=== PATIENT | female | born 1970 | race Caucasian/White ===

== ENCOUNTER 2016-12-05 05:35 | Emergency (ER) | payer BC ==
--- NOTE | 2016-12-05 05:38 | PDOC ---
History of Present Illness - General Chief Complaint: Pain, Acute Stated Complaint: ULCER ON LEFT RING FINGER Time Seen by Provider: 12/05/16 05:38 - History of Present Illness Initial Comments: This 46-year-old woman with a history of scleroderma and Raynaud's syndrome, with a history of necrotic ulcers the tips of both fingers presents with persistent pain in an ulcer at the tip of her left fourth finger. Patient states that this particular ulcer began developing in June 2016. Since then , she has had necrosis and pain in the area. Follow-up appointments in the last few months with hand surgery and pain management appears to have not been effective for her healing or pain. For the last month, she has taken Tylenol for the pain only without significant relief. She has not had any follow-up with wound care physicians. She has never had any secondary bacterial infection in any of her ischemic ulcers. Past History - Past Medical History Allergies/Adverse Reactions: Allergies Allergy/AdvReac Type Severity Reaction Status Date / Time Penicillins Allergy Hives Verified 12/05/16 05:39 ibuprofen [From Motrin] AdvReac Swelling Verified 12/05/16 05:39 metoprolol AdvReac Verified 12/05/16 05:39 oseltamivir AdvReac Verified 12/05/16 05:39 phenytoin AdvReac Rash Verified 12/05/16 05:39 Home Medications: Ambulatory Orders Levothyroxine [Synthroid -] 75 mcg PO DAILY #0 tablet 08/03/13 Pantoprazole Sodium [Protonix] 40 mg PO DAILY 10/14/14 Diltiazem HCl [Diltiazem 24Hr ER] 240 mg PO BID 10/16/14 Azathioprine [Imuran] 50 mg PO TID 12/05/16 Cyanocobalamin 1,000 mcg IM MONTHLY 12/05/16 Duloxetine HCl [Cymbalta] 20 mg PO DAILY 12/05/16 Oxycodone HCl/Acetaminophen [Percocet 5-325 mg Tablet] 1 tab PO Q6H PRN #16 tablet MDD 4 tabs 12/05/16 Anemia: Yes Cardiac Disorders: Yes ("heart murmur", HCM) COPD: Yes (PULMONARY HTN) GI Disorders: Yes ("acid reflux") HTN: Yes Thyroid Disease: Yes - Surgical History Abdominal Surgery: Yes (TUBAL LIGATION) - Psycho/Social/Smoking Cessation Hx Anxiety: Yes Suicidal Ideation: No Smoking History: Former smoker Have you smoked in the past 12 months: No Number of Cigarettes Smoked Daily: 26 Hx Alcohol Use: Yes ("RARE") Drug/Substance Use Hx: No Substance Use Type: None *Physical Exam - Physical Exam Comments: GENERAL: Awake, alert, and fully oriented, in moderate distress secondary to left fourth finger pain HEAD: No signs of trauma EYES: PERRLA, EOMI, sclera anicteric, conjunctiva clear ENT: Auricles normal inspection, hearing grossly normal, nares patent, oropharynx clear without exudates. Moist mucosa NECK: Normal ROM, supple, no lymphadenopathy, JVD, or masses LUNGS: Breath sounds clear and equal. No wheezes, and no crackles HEART: Regular rate and rhythm, normal S1 and S2, no murmurs, rubs or gallops ABDOMEN: Soft, nontender, normoactive bowel sounds. No guarding, no rebound. No masses EXTREMITIES: Left fourth finger1 cm by 1 cm tender, necrotic ulcer palmar aspect of the distal phalanx; surrounding 2 cm erythematous/edematous area No fluctuance or purulent discharge NEUROLOGICAL: Cranial nerves II through XII grossly intact. Normal speech, normal gait SKIN: Warm, Dry, normal turgor, no rashes or lesions noted. Imaging director of agronomy interpretation of the left fourth finger x-ray: Osteopenia without evidence of bone necrosis Medical Decision Making - Medical Decision Making Because of the patient's severe pain secondary to her ischemic finger ulcer, patient will have 1 mg of Dilaudid IM. Patient is intolerant of nonsteroidal anti-inflammatory medications. She will be given a prescription for Percocet 5/325 (#16) to be taken up to 4 times a day as needed for severe pain. Patient will be referred to [facility] wound care center. In retrospect, the patient remembered that her PMD, Dr. Orona, had suggested that the wound care center at [facility] evaluate her.. She should also call Dr. Orona within the next 48 hours to arrange for follow-up with him. She should return to the emergency room if she has worsening pain or notices discharge/swelling or redness in the proximal digit/hand *DC/Admit/Observation/Transfer Diagnosis at time of Disposition: Ischemic ulcer of finger Qualifiers: Non-pressure ulcer stage: unspecified non-pressure ulcer stage Qualified Code(s ): L98.499 - Non-pressure chronic ulcer of skin of other sites with unspecified severity - Discharge Dispostion Disposition: HOME Condition at time of disposition: Stable - Prescriptions Prescriptions: Oxycodone HCl/Acetaminophen [Percocet 5-325 mg Tablet] 1 tab PO Q6H PRN #16 tablet MDD 4 tabs PRN Reason: Severe Pain - Referrals Referrals: Tom Orona MD [Primary Care Provider] - Call tomorrow - Patient Instructions Additional Instructions: Tylenol as needed for mild pain Percocet 5/325 up to 4 times a day for severe pain Call Dr. Orona on December 06 to arrange follow-up Call wound care center at [facility]: [phone] as discussed Return to ER as needed
[2016-12-05 05:52] VITALS: PULSE 70; TEMP 97.4
[2016-12-05] MEDS ORDERED: HYDROmorphone HCL CARPU-JECT 1 MG/1 ML DISP.SYRIN IM ONE (06:08)
[2016-12-05] MEDS ORDERED: HYDROmorphone HCL CARPU-JECT 2 MG/1 ML DISP.SYRIN ONE (06:10)
[2016-12-05 06:15] VITALS: BP 154/93
== END 2016-12-05 06:21 | disposition home or self-care (01) ==
LOC: FER 05:35
PROC: 3E023NZ Introduction of Analgesics, Hypnotics, Sedatives into Muscle, Percutaneous Approach (ICD-10-PCS; principal; 2016-12-05)
DX: L98.499 Non-pressure chronic ulcer of skin of other sites with unspecified severity (principal); M34.9 Systemic sclerosis, unspecified; I73.00 Raynaud's syndrome without gangrene; I27.2 Other secondary pulmonary hypertension; Z87.891 Personal history of nicotine dependence; E07.9 Disorder of thyroid, unspecified; D64.9 Anemia, unspecified; R01.1 Cardiac murmur, unspecified; K21.9 Gastro-esophageal reflux disease without esophagitis; I10 Essential (primary) hypertension
CPT/HCPCS: 73140-TC-LT; 99281-25

== ENCOUNTER 2018-09-20 12:27 | Emergency (ER) | payer BC ==
[2018-09-20 12:57] VITALS: BP 151/82; PULSE 63; TEMP 97.7; BMI 28.3
--- NOTE | 2018-09-20 13:01 | PDOC ---
History of Present Illness - General Chief Complaint: Pain Stated Complaint: ARM AND LEG STIFFNESS AND PAIN Time Seen by Provider: 09/20/18 12:48 History Source: Patient Exam Limitations: No Limitations - History of Present Illness Initial Comments: 09/20/18 13:02 Ms Valdez is a 48 yo F h/o HTN, Hypothyroidism, systemic scleroderma severe ( previously requiring chemotherapy), now on Imuran (no recent dose changes). Pt states that 10 days ago, she began to feel that her muscles and joints were inflammed. She contacted Dr Rodgers (her floor nurse) who started her on a Medrol dose pack. Pt completed this PMH: HTN, GERD, Scleroderma PSH: Meds: ALL: PCN, Ibuprofen, Metoprolol, Oseltamivir, Phenytoin Social: ROS: GENERAL/CONSTITUTIONAL: No: fever, chills, weakness, loss of appetite. HEAD, EYES, EARS, NOSE AND THROAT: No: change in vision, ear pain, discharge, sore throat, throat swelling. CARDIOVASCULAR: No: chest pain, lightheadedness, palpitations, syncope RESPIRATORY: No: cough, shortness of breath, wheezing, hemoptysis, stridor. GASTROINTESTINAL: No: nausea, vomiting, abdominal cramping, diarrhea, rectal bleeding, constipation. GENITOURINARY: No: dysuria, hematuria, frequency, urgency, flank pain. MUSCULOSKELETAL: No: back pain, neck pain, joint pain, muscle swelling or pain SKIN AND BREASTS: No: lesions, pallor, rash or easy bruising. NEUROLOGIC: No: headache, vertigo, paresthesias, weakness ENDOCRINE: No: unexplained weight gain or loss HEMATOLOGIC/LYMPHATIC: No: anemia, easy bleeding, swelling nodes My Normal Exam GENERAL: The patient is in no acute distress. HEAD: Normal with no signs of trauma. EYES: PERRLA, EOMI, sclera anicteric, conjunctiva clear. ENT: Ears normal, nares patent, oropharynx clear without exudates. Moist mucous membranes. NECK: Normal range of motion, supple without lymphadenopathy, JVD, or masses. LUNGS: Breath sounds equal, clear to auscultation bilaterally. No wheezes, and no crackles. HEART:Regular rate and rhythm, normal S1 and S2 without murmur, rub or gallop. ABDOMEN: Soft, nontender, normoactive bowel sounds. No guarding, no rebound. EXTREMITIES: Normal range of motion, no edema. No clubbing or cyanosis. No erythema, or tenderness. NEUROLOGICAL: Cranial nerves II through XII grossly intact. Normal speech. No focal neurological deficits. MUSCULOSKELETAL: Back non-tender to palpation, no CVA tenderness SKIN: Warm, Dry, normal turgor, no rashes or lesions noted. 09/20/18 13:54 09/20/18 15:09 Past History - Past Medical History Allergies/Adverse Reactions: Allergies Allergy/AdvReac Type Severity Reaction Status Date / Time Penicillins Allergy Hives Verified 09/20/18 12:28 ibuprofen [From Motrin] AdvReac Swelling Verified 09/20/18 12:29 metoprolol AdvReac Verified 09/20/18 12:29 oseltamivir AdvReac Verified 09/20/18 12:30 phenytoin AdvReac Rash Verified 09/20/18 12:31 Home Medications: Ambulatory Orders Levothyroxine [Synthroid -] 75 mcg PO DAILY #0 tablet 08/03/13 Pantoprazole Sodium [Protonix] 40 mg PO DAILY 10/14/14 Diltiazem HCl [Diltiazem 24Hr ER] 240 mg PO BID 10/16/14 Azathioprine [Imuran] 50 mg PO TID 12/05/16 Oxycodone HCl/Acetaminophen [Percocet 5-325 mg Tablet -] 1 tab PO Q8H PRN #10 tablet MDD 3 09/20/18 Anemia: Yes Cardiac Disorders: Yes ("heart murmur", HCM MVP PERICARDITIS) COPD: Yes (PULMONARY HTN) GI Disorders: Yes ("acid reflux") HTN: Yes Thyroid Disease: Yes Other medical history: SCLERODERMA,RAYNAURDS, LUNG DISEASE - Surgical History Abdominal Surgery: Yes (TUBAL LIGATION) - Suicide/Smoking/Psychosocial Hx Smoking History: Never smoked Have you smoked in the past 12 months: No Number of Cigarettes Smoked Daily: 26 Information on smoking cessation initiated: No Hx Alcohol Use: No Drug/Substance Use Hx: No Substance Use Type: None *Physical Exam - Vital Signs Last Vital Signs Temp Pulse Resp BP Pulse Ox 97.7 F 63 16 151/82 100 09/20/18 12:28 09/20/18 12:28 09/20/18 12:28 09/20/18 12:28 09/20/18 12:28 Moderate Sedation - Procedure Monitoring Vital Signs: Procedure Monitoring Vital Signs Temperature 97.7 F 09/20/18 12:28 Pulse Rate 63 09/20/18 12:28 Respiratory Rate 16 09/20/18 12:28 Blood Pressure 151/82 09/20/18 12:28 O2 Sat by Pulse Oximetry (%) 100 09/20/18 12:28 ED Treatment Course - LABORATORY CBC & Chemistry Diagram: 09/20/18 14:22 09/20/18 14:22 Medical Decision Making - Medical Decision Making 09/20/18 15:49 Laboratory Tests 09/20/18 09/20/18 14:22 14:22 WBC 6.5 Hgb 14.0 Hct 43.6 Plt Count 273 Sodium 132 L Potassium 3.6 Chloride 101 Carbon Dioxide 24 BUN 12 Creatinine 0.4 L Random Glucose 93 Total Bilirubin 1.3 H AST 29 ALT 17 Case reviewed with patient's Form Tamping Machine Operator who states that the patient has a mixed connective tissue disorder - scleroderma, myositis she recommended that she NOT be started on steroids again Rather she recommend aggressive Rhab Pt was up and to the bathroom with improved symptoms after Tylenol 1000mg IV will discharge to home Will ask pt to follow up with PMD and Form Tamping Machine Operator Will give a 3 day course of percocet for break through pain *DC/Admit/Observation/Transfer Diagnosis at time of Disposition: Muscle stiffness - Discharge Dispostion Disposition: HOME Condition at time of disposition: Stable Decision to Admit order: No - Referrals Referrals: Tom Orona MD [Staff Physician] - - Patient Instructions Printed Discharge Instructions: DI for Muscle Weakness Additional Instructions: Ms Valdez Thank you for coming in to the ER today Please be sure to follow up with Dr Rodgers and Dr Orona It will be important to see how you do with pain medications You may need to go back to physical therapy Please return to the ER for Fevers, chills, any other concerns or complaints - Post Discharge Activity
[2018-09-20 14:29] LABS: MEAN PLT VOLUME 8.1 fl (7.5-11.1); WHITE BLOOD COUNT 6.5 K/mm3 (4.0-10.8)
[2018-09-20 14:32] LABS: HEMATOCRIT 43.6 % (32.4-45.2); MCH 27.9 pg (25.7-33.7); MCHC 32.2 g/dl (32.0-36.0); MEAN CELL VOLUME 86.6 fl (80-96); PLATELET COUNT 273 K/MM3 (134-434); RBC 5.03 M/mm3 (3.60-5.2); RDW 16.6 % (11.6-15.6)
[2018-09-20] MEDS ORDERED: ACETAMINOPHEN 1000 MG/100 ML VIAL (NON FORMULARY) IVPB ONE (14:47)
[2018-09-20 14:51] LABS: ALBUMIN 3.4 g/dl (3.4-5.0); ALK PHOS 82 U/L (45-117); ANION GAP 7 MMOL/L (8-16); BILIRUBIN,TOTAL 1.3 mg/dl (0.2-1); BLOOD UREA NITROGEN 12 mg/dl (7-18); CALCIUM 8.4 mg/dl (8.5-10); CHLORIDE 101 mmol/L (98-107); CO2 24 mmol/L (21-32); CREATININE 0.4 mg/dl (0.55-1.3); GLUCOSE,RANDOM 93 mg/dl (74-106); POTASSIUM 3.6 mmol/L (3.5-5.1); SGOT/AST 29 U/L (15-37); SGPT/ALT 17 U/L (13-61); SODIUM 132 mmol/L (136-145); TOT PROT 7.8 g/dl (6.4-8.2)
[2018-09-20] MEDS ORDERED: ACETAMINOPHEN INJECTION 100 ML IVPB ONE (14:52)
[2018-09-20 15:09] LABS: PLATELET ESTIMATE ADEQUATE
[2018-09-20 15:53] LABS: ERYTHROCYTE SEDIMENTATION RATE 23 mm/hr (0-30)
== END 2018-09-20 16:41 | disposition home or self-care (01) ==
LOC: FER 12:27
PROC: 3E033NZ Introduction of Analgesics, Hypnotics, Sedatives into Peripheral Vein, Percutaneous Approach (ICD-10-PCS; principal; 2018-09-20)
DX: M62.89 Other specified disorders of muscle (principal); I10 Essential (primary) hypertension; E03.9 Hypothyroidism, unspecified; M34.9 Systemic sclerosis, unspecified; K21.9 Gastro-esophageal reflux disease without esophagitis; R01.1 Cardiac murmur, unspecified
CPT/HCPCS: 36415; 80053; 85025; 85651; 86140; 99282-25; J0131

== ENCOUNTER 2019-04-02 17:50 | Inpatient (IN) | payer BC ==
--- NOTE | 2019-04-02 17:54 | PDOC ---
History of Present Illness - General Chief Complaint: Pain Stated Complaint: ABD PAIN Time Seen by Provider: 04/02/19 17:53 History Source: Patient Exam Limitations: No Limitations - History of Present Illness Initial Comments: 48 yo F pmh scleroderma, copd, raynauds chf, pulm htn sent in by PCP for 3 days of worsening constant sharp LUQ pain with n/v/po-intolerance. Was hospitalized in February for PNA and March (dc the ) for cardiac workup. Last BM - hard pellets yesterday. Denies f/c, diarrhea, bloody stool, chest pain. States her breathing is at baseline and has chronic unchanged palpitations. No h/o abdomen surgery but pt states she has chronic gallbladder issues but was not in condition to have surgery. Past History - Past Medical History Allergies/Adverse Reactions: Allergies Allergy/AdvReac Type Severity Reaction Status Date / Time Penicillins Allergy Hives Verified 04/02/19 18:11 ibuprofen [From Motrin] AdvReac Swelling Verified 04/02/19 18:11 metoprolol AdvReac Verified 04/02/19 18:11 oseltamivir AdvReac Verified 04/02/19 18:11 phenytoin AdvReac Rash Verified 04/02/19 18:11 Home Medications: Ambulatory Orders Levothyroxine [Synthroid -] 75 mcg PO DAILY #0 tablet 08/03/13 Pantoprazole Sodium [Protonix] 40 mg PO DAILY 10/14/14 Diltiazem HCl [Diltiazem 24Hr ER (Cd)] 240 mg PO BID 10/16/14 Ambrisentan [Letairis] 10 mg PO DAILY 04/02/19 Atorvastatin Ca [Lipitor] 40 mg PO DAILY 04/02/19 Disopyramide Phosphate [Norpace] 100 mg PO TID 04/02/19 Methylprednisolone [Medrol -] 6 mg PO DAILY 04/02/19 Torsemide 20 mg PO BID 04/02/19 HYDROmorphone INJECTION [Dilaudid Injection -] 1 mg IVPUSH Q4H PRN #1 mg MDD 6 04/03/19 Heparin - 1,000 unit IVPUSH PRN PRN vial 04/03/19 Heparin - 5,000 unit IVPUSH PRN PRN vial 04/03/19 Anemia: Yes Cardiac Disorders: Yes ("heart murmur", HCM MVP PERICARDITIS) COPD: Yes (PULMONARY HTN) GI Disorders: Yes ("acid reflux") HTN: Yes Thyroid Disease: Yes - Surgical History Abdominal Surgery: Yes (TUBAL LIGATION) - Suicide/Smoking/Psychosocial Hx Smoking History: Never smoked Have you smoked in the past 12 months: No Number of Cigarettes Smoked Daily: 26 Hx Alcohol Use: No Drug/Substance Use Hx: No Substance Use Type: None Review of Systems - Review of Systems Able to Perform ROS?: Yes Comments:: DENIES f/c, diarrhea, bloody stool, chest pain Is the patient limited Tunisian proficient: No *Physical Exam - Physical Exam Comments: 04/03/19 16:57 GEN: Thin, moderately uncomfortable. AAOx3 HEENT: NC/AT, EOMI, PERRLA, CN II-XII intact. Moist mucous membranes. CV: S1/S2, RRR, systolic murmur LUNG: CTAB, no wheezes, crackles, rales, rhonchi. GI: LUQ TTP; soft, nondistended, +BS, no guarding, no rebound. No masses. ED Treatment Course - LABORATORY CBC & Chemistry Diagram: 04/02/19 18:30 04/02/19 18:30 Medical Decision Making - Medical Decision Making 04/02/19 18:22 48 yo F w/ complicated pmh and recent hospital admissions in February and March for PNA and cardiac workup sent in by PCP for worsening LUQ pain w/ n/v/po- intolerance. Exam significant for LUQ TTP. LUQ pain - CBC, CMP, Lipase, lactate - UA/UC - CXR, EKG - CT AP 04/02/19 21:23 CT demonstrates multiple acute splenic infarcts. Attending spoke to Surgeon field operations farm manager regarding CT findings - no surgical management indicated. Will admit for supportive care of splenic infarct - pain control, antiemetics, and hydration *DC/Admit/Observation/Transfer Diagnosis at time of Disposition: Splenic infarct - Discharge Dispostion Condition at time of disposition: Stable - Referrals - Patient Instructions - Post Discharge Activity
[2019-04-02 18:09] VITALS: BMI 23.1
--- NOTE | 2019-04-02 18:19 | PDOC ---
Attending Attestation - Resident Resident Name: EdisDharmesh - ED Attending Attestation I have performed the following: I have examined & evaluated the patient, The case was reviewed & discussed with the resident, I agree w/resident's findings & plan, Exceptions are as noted - HPI HPI: 04/02/19 18:14 48 yo h/o scleroderma, copd, raynauds chf, pulm htn, on cellcept, ( held recently for infecton concerns ) and steroid taper for autoimmune ( solumedrol 6 mg ) recent pneumonia few months ago, admitted to [facility] from 03/16 - 03/29 for abnormal ekg, pt states during her admission she had card cath echo. over weekend following her discharge she has been having intermittent nausea, vomiting, and c/o left sided abd pain. no bloody stool, decreased po intake. last bm was yesterday hard pellets. no f/c no cp . sob is chronic, and she feels at her baseline. always c/o palpitations. saw dr Orona today, who sent to er for evaluation of abd pain. no previous abd surgeries. allergy to nsaid, pcn, phytoin, oseltamivir meds ambrisentan 10mg, atorvastatin 40mg, diltiazem cd 240, levothyroxine 75, methylprednisolone 6mg, torsemide 20 mg gabapentin 300mg 04/02/19 18:19 - Physicial Exam PE: 04/02/19 18:22 awake alert dry mucous memranes. lungs clear bilat heart rrr systolic murmur 3/ 6 , abd soft luq, llq ttp. no rebound no guarding. ext wwp. pt pale. nuero alert oriented x 3. - Medical Decision Making 04/02/19 18:23 48 yo F with h/o chf, scleroderma, copd, pulm htn on steroids, torsemide, here for luq pain, decreased po intake, n/v ttp left sided abd differential diverticultiis peptic ulcer disease, post prandial ischemia from low flow, chf, renal failure infection such as uti, paln ct a/p labs 250 mL hydration. ( gentle hydratio h/o chf) will call dr ornoa for additional history. dr orona unavailable after hours, covering doctor unaware of pt history.
[2019-04-02] MEDS ORDERED: SODIUM CHLORIDE 0.9% 500 ML INFUS.BAG IV ONE (18:26)
[2019-04-02 18:58] LABS: BASO % 3.4 % (0-2.0); EOS % 0.1 % (0-4.5); HEMATOCRIT 34.8 % (32.4-45.2); HEMOGLOBIN 11.4 GM/dl (10.7-15.3); LYMPH % 8.5 % (8-40); MCH 27.6 pg (25.7-33.7); MCHC 32.7 g/dl (32.0-36.0); MEAN CELL VOLUME 84.3 fl (80-96); MEAN PLT VOLUME 8.2 fl (7.5-11.1); MONO % 6.7 % (3.8-10.2); NEUT % 81.3 % (42.8-82.8); PLATELET COUNT 291 K/MM3 (134-434); RBC 4.13 M/mm3 (3.60-5.2); RDW 18.4 % (11.6-15.6); WHITE BLOOD COUNT 8.9 K/mm3 (4.0-10.8)
[2019-04-02 19:10] LABS: ALBUMIN 4.2 g/dl (3.4-5.0); BILIRUBIN,TOTAL 1.4 mg/dl (0.2-1); CALCIUM 9.3 mg/dl (8.5-10); CREATININE 0.9 mg/dl (0.55-1.3); POTASSIUM 3.7 mmol/L (3.5-5.1); TOT PROT 8.6 g/dl (6.4-8.2)
[2019-04-02] MEDS ORDERED: SODIUM CHLORIDE 0.9% 1000 ML INFUS.BAG IV ONE (19:16)
--- NOTE | 2019-04-02 19:50 | PDOC ---
*Physical Exam - Vital Signs Last Vital Signs Temp Pulse Resp BP Pulse Ox 98.9 F 82 18 120/80 97 04/02/19 17:52 04/02/19 17:52 04/02/19 17:52 04/02/19 17:52 04/02/19 17:52 ED Treatment Course - LABORATORY CBC & Chemistry Diagram: 04/02/19 18:30 04/02/19 18:30 - ADDITIONAL ORDERS Additional order review: Laboratory Results 04/02/19 04/02/19 04/02/19 19:00 18:30 18:30 Sodium 137 Potassium 3.7 Chloride 96 L Carbon Dioxide 29 Anion Gap 12 BUN 27.0 H Creatinine 0.9 Est GFR (CKD-EPI)AfAm 86.41 Est GFR (CKD-EPI)NonAf 74.55 Random Glucose 95 Calcium 9.3 Total Bilirubin 1.4 H AST 33 ALT 14 Alkaline Phosphatase 76 Troponin I 0.10 H Total Protein 8.6 H Albumin 4.2 Urine Color Yellow Urine Appearance Clear Urine pH 5.5 Urine Protein 1+ H Urine Glucose (UA) Negative Urine Ketones Negative Urine Blood Trace-lysed Urine Nitrite Negative Urine Bilirubin Negative Urine Urobilinogen 0.2 Ur Leukocyte Esterase Negative 04/02/19 18:30 RBC 4.13 MCV 84.3 MCHC 32.7 RDW 18.4 H D MPV 8.2 Neutrophils % 81.3 Lymphocytes % 8.5 Monocytes % 6.7 Eosinophils % 0.1 Basophils % 3.4 H - Medications Given in the ED: ED Medications Discontinued Medications Generic Name Dose Route Start Last Admin Trade Name Freq PRN Reason Stop Dose Admin Sodium Chloride 250 ml 04/02/19 18:26 04/02/19 18:50 Normal Saline - IV 04/02/19 18:27 250 ml ONCE ONE Administration Sodium Chloride 250 ml 04/02/19 19:16 04/02/19 19:26 Normal Saline - IV 04/02/19 19:17 250 ml ONCE ONE Administration Progress Note - Progress Note Progress Note: Care of this patient was transferred to [place] from Dr. Rothman at 1900 hrs. Patient is a 48-year-old female being seen by the emergency medicine journalism intern primarily. Patient has an extensive medical history. Patient has complaint of left upper quadrant abdominal pain and is getting a CT scan to rule out any pathology. It was also noted to have a elevated troponin. She will need to be admitted. Patient's CAT scan showed multiple splenic infarcts. Patient will be admitted to a inpatient bed by the hospitalist service for supportive management of her splenic infarcts. Discussed admission with hospitalist. *DC/Admit/Observation/Transfer Diagnosis at time of Disposition: Splenic infarct - Discharge Dispostion Condition at time of disposition: Fair - Referrals - Patient Instructions - Post Discharge Activity
[2019-04-02] MEDS ORDERED: morphine CARPU-JECT 4 MG/1 ML DISP.SYRIN IVPUSH ONE (20:14)
[2019-04-02] MEDS ORDERED: ONDANSETRON 4 MG/2 ML VIAL ONE (20:15)
[2019-04-02] MEDS ORDERED: morphine SULFATE 4 MG/ML VIAL ONE (20:15)
[2019-04-02] MEDS ORDERED: ONDANSETRON 4 MG/2 ML VIAL IVPB ONE (20:15)
[2019-04-02] MEDS ORDERED: HYDROmorphone HCL CARPU-JECT 1 MG/1 ML DISP.SYRIN IVPUSH ONE (20:17)
[2019-04-02] MEDS ORDERED: HYDROmorphone HCL CARPU-JECT 1 MG/1 ML DISP.SYRIN ONE (20:18)
[2019-04-02 20:40] LABS: EPITHELIAL CELLS FEW /hpf
[2019-04-02] MEDS ORDERED: HEPARIN NA (PORCINE) 5,000 UNITS/ML 1ML VIAL IVPUSH PRN ×2 (22:50)
[2019-04-02] MEDS ORDERED: HEPARIN NA (PORCINE) 5,000 UNITS/ML 1ML VIAL IVPUSH ONE (22:55)
[2019-04-02] MEDS ORDERED: HEPARIN INFUSION - 25,000 UNITS/500 ML INFUS.BAG IVPB SCH ×2 (23:00→23:03)
--- NOTE | 2019-04-02 23:12 | HP ---
CHIEF COMPLAINT: PCP: Dr. Orona Cardiology: Dr. Wen, [facility] Pulmonary: Dr. Mendieta (Pulmonary hypertension team); Dr. Copeland (Pulmonary Team), [place] Rheum: Dr. Epstein, [facility] HISTORY OF PRESENT ILLNESS: 48 year-old female with a PMH significant for HTN, scleroderma, HOCM, pulmonary HTN, ILD, and hypothyroidism. Patient was hospitalized at [place] in February and diagnosed with pulmonary hypertension. She was rehospitalized at [facility] from 03/16-03/29 for cardiac workup. No further details available at this time. Patient went to see her PCP today with a complaint of left upper quadrant abdominal pain with nausea and vomiting x 3 days. He referred her to the [place] ED. CT imaging shows multiple acute splenic infarcts, possible small bowel ischemia, and an elevated initial troponin. Patient denies chest pain, SOB , MASTERS, lower extremity edema. She denies fever, sweats, chills. ER course was notable for: (1) CT: multiple acute splenic infarcts (2) CT: possible small bowel ischemia (3) Lactic acid wnl (4) Troponin 0.1 (5) ECG: sinus rhythm Recent Travel: No PAST MEDICAL HISTORY: Hypertension Scleroderma Hypertrophic obstructive cardiomyopathy (HOCM) Pulmonary hypertension Interstitial lung disease Hypothyroidism Trigeminal neuralgia Raynauds PAST SURGICAL HISTORY: Tubal ligation Parathyroidectomy Trigeminal nerve surgery Social History: lives with spouse Smoking: former Alcohol: rare Drugs: no Family History: Allergies Penicillins Allergy (Verified 04/02/19 18:11) Hives ibuprofen [From Motrin] Adverse Reaction (Verified 04/02/19 18:11) Swelling metoprolol Adverse Reaction (Verified 04/02/19 18:11) oseltamivir Adverse Reaction (Verified 04/02/19 18:11) phenytoin Adverse Reaction (Verified 04/02/19 18:11) Rash REVIEW OF SYSTEMS CONSTITUTIONAL: Absent: fever, chills, diaphoresis, generalized weakness, malaise, loss of appetite, weight change HEENT: Absent: rhinorrhea, nasal congestion, throat pain, throat swelling, difficulty swallowing, mouth swelling, ear pain, eye pain, visual changes CARDIOVASCULAR: Absent: chest pain, syncope, palpitations, irregular heart rate, lightheadedness , peripheral edema RESPIRATORY: Absent: cough, shortness of breath, dyspnea with exertion, orthopnea, wheezing, stridor, hemoptysis GASTROINTESTINAL: +left upper quadrant pain, nausea, vomiting Absent: abdominal distension, diarrhea, constipation, melena, hematochezia GENITOURINARY: Absent: dysuria, frequency, urgency, hesitancy, hematuria, flank pain, genital pain MUSCULOSKELETAL: Absent: myalgia, arthralgia, joint swelling, back pain, neck pain SKIN: Absent: rash, itching, pallor HEMATOLOGIC/IMMUNOLOGIC: Absent: easy bleeding, easy bruising, lymphadenopathy, frequent infections ENDOCRINE: Absent: unexplained weight gain, unexplained weight loss, heat intolerance, cold intolerance NEUROLOGIC: Absent: headache, focal weakness or paresthesias, dizziness, unsteady gait, seizure, mental status changes, bladder or bowel incontinence PSYCHIATRIC: Absent: anxiety, depression, suicidal or homicidal ideation, hallucinations. PHYSICAL EXAMINATION Vital Signs - 24 hr 04/02/19 04/02/19 04/02/19 17:52 19:59 20:26 Temperature 98.9 F Pulse Rate 82 Pulse Rate [ 74 Right Radial] Respiratory 18 Rate Blood Pressure 120/80 Blood Pressure 110/63 114/56 L [Right Arm] O2 Sat by Pulse 97 97 Oximetry (%) GENERAL: Awake, alert, and fully oriented, in no acute distress. HEAD: Normal with no signs of trauma. EYES: Pupils equal, round and reactive to light, extraocular movements intact, sclera anicteric, conjunctiva clear. No lid lag. LUNGS: Breath sounds equal, clear to auscultation bilaterally. No wheezes, and no crackles. No accessory muscle use. HEART: Regular rate and rhythm, normal S1 and S2 +murmur ABDOMEN: Soft, LUQ tenderness, not distended, normoactive bowel sounds, no guarding, no rebound tenderness MUSCULOSKELETAL: Normal range of motion at all joints. No bony deformities or tenderness. No CVA tenderness. UPPER EXTREMITIES: 2+ pulses, warm, well-perfused. No cyanosis. No clubbing. No peripheral edema. LOWER EXTREMITIES: 2+ pulses, warm, well-perfused. No calf tenderness. No peripheral edema. NEUROLOGICAL: Cranial nerves II-XII intact. Normal speech. Normal gait. Laboratory Results - last 24 hr 04/02/19 04/02/19 04/02/19 18:30 18:30 18:30 WBC 8.9 RBC 4.13 Hgb 11.4 Hct 34.8 D MCV 84.3 MCH 27.6 MCHC 32.7 RDW 18.4 H D Plt Count 291 MPV 8.2 Absolute Neuts (auto) 7.2 Neutrophils % 81.3 Lymphocytes % 8.5 Monocytes % 6.7 Eosinophils % 0.1 Basophils % 3.4 H Sodium 137 Potassium 3.7 Chloride 96 L Carbon Dioxide 29 Anion Gap 12 BUN 27.0 H Creatinine 0.9 Est GFR (CKD-EPI)AfAm 86.41 Est GFR (CKD-EPI)NonAf 74.55 Random Glucose 95 Lactic Acid Calcium 9.3 Total Bilirubin 1.4 H AST 33 ALT 14 Alkaline Phosphatase 76 Troponin I 0.10 H Total Protein 8.6 H Albumin 4.2 Lipase 229 Urine Color Urine Appearance Urine pH Urine Protein Urine Glucose (UA) Urine Ketones Urine Blood Urine Nitrite Urine Bilirubin Urine Urobilinogen Ur Leukocyte Esterase Urine RBC Urine WBC Ur Transition Epith Cell Urine Bacteria 04/02/19 04/02/19 19:00 19:00 WBC RBC Hgb Hct MCV MCH MCHC RDW Plt Count MPV Absolute Neuts (auto) Neutrophils % Lymphocytes % Monocytes % Eosinophils % Basophils % Sodium Potassium Chloride Carbon Dioxide Anion Gap BUN Creatinine Est GFR (CKD-EPI)AfAm Est GFR (CKD-EPI)NonAf Random Glucose Lactic Acid 0.8 Calcium Total Bilirubin AST ALT Alkaline Phosphatase Troponin I Total Protein Albumin Lipase Urine Color Yellow Urine Appearance Clear Urine pH 5.5 Urine Protein 1+ H Urine Glucose (UA) Negative Urine Ketones Negative Urine Blood Trace-lysed Urine Nitrite Negative Urine Bilirubin Negative Urine Urobilinogen 0.2 Ur Leukocyte Esterase Negative Urine RBC 2-5 Urine WBC 0-2 Ur Transition Epith Cell Few Urine Bacteria Few Home Medications Medication Instructions Recorded Levothyroxine [Synthroid -] 75 mcg PO DAILY #0 tablet 08/03/13 Pantoprazole Sodium [Protonix] 40 mg PO DAILY 10/14/14 Diltiazem HCl [Diltiazem 24Hr ER 240 mg PO BID 10/16/14 (Cd)] Ambrisentan [Letairis] 10 mg PO DAILY 04/02/19 Atorvastatin Ca [Lipitor] 40 mg PO DAILY 04/02/19 Disopyramide Phosphate [Norpace] 100 mg PO TID 04/02/19 Methylprednisolone [Medrol -] 6 mg PO DAILY 08/19/19 Torsemide 20 mg PO BID 04/02/19 ASSESSMENT/PLAN 48 year-old female with a PMH significant for HTN, scleroderma, HOCM, pulmonary HTN, ILD, and hypothyroidism. Admitted for multiple acute splenic infarcts. Multiple acute splenic infarcts --etiology uncertain --ECG sinus rhythm; no sign of afib on telemetry so far --possibly due to vasculits --heparin drip started @ 11:00pm Possible small bowel ischemia --small bowel wall thickening, possible acute ischemia --lactic acid 0.8 Elevated troponin --initial troponin 0.1, two pending --discussed briefly with Dr. Mendieta from [place], has chronic troponin elevation Hypertension --continue diltiazem HOCM --continue Norpace --continue Torsemide Pulmonary hypertension --continue ambrisentan Interstitial lung disease Scleroderma --continue methylprednisolone FEN Fluids: PO intake adequate Electrolytes: replete as indicated Nutrition: low sodium DVT prophylaxis: on heparin drip; PTT goal 50-70 Dispo: accepted for transfer to [place], Dr. Mendieta's pulmonary hypertension team; awaiting bed availability. Full code. Visit type - Emergency Visit Emergency Visit: Yes ED Registration Date: 04/02/19 Care time: The patient presented to the Emergency Department on the above date and was hospitalized for further evaluation of their emergent condition. - New Patient This patient is new to me today: Yes Date on this admission: 04/03/19 - Critical Care Critical Care patient: No
[2019-04-03] MEDS ORDERED: HYDROmorphone HCL CARPU-JECT 1 MG/1 ML DISP.SYRIN IVPUSH PRN (00:34)
--- NOTE | 2019-04-03 00:59 | DS ---
Physical Exam: SUBJECTIVE: Patient seen and examined OBJECTIVE: Vital Signs Period Temp Pulse Resp BP Sys/Robbins Pulse Ox Last 24 Hr 98.7 F-98.9 F 74-88 18-18 110-123/56-80 97-97 PHYSICAL EXAM GENERAL: Awake, alert, and fully oriented, in no acute distress. HEAD: Normal with no signs of trauma. EYES: Pupils equal, round and reactive to light, extraocular movements intact, sclera anicteric, conjunctiva clear. No lid lag. LUNGS: Breath sounds equal, clear to auscultation bilaterally. No wheezes, and no crackles. No accessory muscle use. HEART: Regular rate and rhythm, normal S1 and S2 +murmur ABDOMEN: Soft, LUQ tenderness, not distended, normoactive bowel sounds, no guarding, no rebound tenderness MUSCULOSKELETAL: Normal range of motion at all joints. No bony deformities or tenderness. No CVA tenderness. UPPER EXTREMITIES: 2+ pulses, warm, well-perfused. No cyanosis. No clubbing. No peripheral edema. LOWER EXTREMITIES: 2+ pulses, warm, well-perfused. No calf tenderness. No peripheral edema. NEUROLOGICAL: Cranial nerves II-XII intact. Normal speech. Normal gait. LABS Laboratory Results - last 24 hr 04/02/19 04/02/19 04/02/19 18:30 18:30 18:30 WBC 8.9 RBC 4.13 Hgb 11.4 Hct 34.8 D MCV 84.3 MCH 27.6 MCHC 32.7 RDW 18.4 H D Plt Count 291 MPV 8.2 Absolute Neuts (auto) 7.2 Neutrophils % 81.3 Lymphocytes % 8.5 Monocytes % 6.7 Eosinophils % 0.1 Basophils % 3.4 H PTT (Actin FS) Sodium 137 Potassium 3.7 Chloride 96 L Carbon Dioxide 29 Anion Gap 12 BUN 27.0 H Creatinine 0.9 Est GFR (CKD-EPI)AfAm 86.41 Est GFR (CKD-EPI)NonAf 74.55 Random Glucose 95 Lactic Acid Calcium 9.3 Total Bilirubin 1.4 H AST 33 ALT 14 Alkaline Phosphatase 76 Troponin I 0.10 H Total Protein 8.6 H Albumin 4.2 Lipase 229 Urine Color Urine Appearance Urine pH Urine Protein Urine Glucose (UA) Urine Ketones Urine Blood Urine Nitrite Urine Bilirubin Urine Urobilinogen Ur Leukocyte Esterase Urine RBC Urine WBC Ur Transition Epith Cell Urine Bacteria 04/02/19 04/02/19 04/02/19 19:00 19:00 23:00 WBC RBC Hgb Hct MCV MCH MCHC RDW Plt Count MPV Absolute Neuts (auto) Neutrophils % Lymphocytes % Monocytes % Eosinophils % Basophils % PTT (Actin FS) 27.8 Sodium Potassium Chloride Carbon Dioxide Anion Gap BUN Creatinine Est GFR (CKD-EPI)AfAm Est GFR (CKD-EPI)NonAf Random Glucose Lactic Acid 0.8 Calcium Total Bilirubin AST ALT Alkaline Phosphatase Troponin I Total Protein Albumin Lipase Urine Color Yellow Urine Appearance Clear Urine pH 5.5 Urine Protein 1+ H Urine Glucose (UA) Negative Urine Ketones Negative Urine Blood Trace-lysed Urine Nitrite Negative Urine Bilirubin Negative Urine Urobilinogen 0.2 Ur Leukocyte Esterase Negative Urine RBC 2-5 Urine WBC 0-2 Ur Transition Epith Cell Few Urine Bacteria Few HOSPITAL COURSE: Date of Admission:04/02/19 Date of Discharge: 04/03/19 Pre hospital course 48 year-old female with a PMH significant for HTN, scleroderma, HOCM, pulmonary HTN, ILD, and hypothyroidism. Patient was hospitalized at [place] in February and diagnosed with pulmonary hypertension. She was rehospitalized at [facility] from 03/16-03/29 for cardiac workup. No further details available at this time. Patient went to see her PCP today with a complaint of left upper quadrant abdominal pain with nausea and vomiting x 3 days. He referred her to the [place] ED. CT imaging shows multiple acute splenic infarcts, possible small bowel ischemia, and an elevated initial troponin. Patient denies chest pain, SOB , MASTERS, lower extremity edema. She denies fever, sweats, chills. ER course (1) CT: multiple acute splenic infarcts (2) CT: possible small bowel ischemia (3) Lactic acid wnl (4) Troponin 0.1 (5) ECG: sinus rhythm Subsequent hospital course 48 year-old female with a PMH significant for HTN, scleroderma, HOCM, pulmonary HTN, ILD, and hypothyroidism. Admitted for multiple acute splenic infarcts. Multiple acute splenic infarcts --etiology uncertain --ECG sinus rhythm; no sign of afib on telemetry so far --possibly due to vasculits; esr, crp pending --heparin drip started @ 11:00pm Possible small bowel ischemia --small bowel wall thickening, possible acute ischemia --lactic acid 0.8 Elevated troponin --initial troponin 0.1, two pending --discussed briefly with Dr. Mendieta from [place], has chronic troponin elevation Hypertension --continue diltiazem HOCM --continue Norpace --continue Torsemide Pulmonary hypertension --continue ambrisentan Interstitial lung disease Scleroderma --continue methylprednisolone FEN Fluids: PO intake adequate Electrolytes: replete as indicated Nutrition: low sodium DVT prophylaxis: on heparin drip; PTT goal 50-70 Dispo: accepted for transfer to [place], Dr. Mendieta's pulmonary hypertension team; awaiting bed availability. Full code. Minutes to complete discharge: 35 Discharge Summary Reason For Visit: INFARCTION OF SPLEEN Current Active Problems Splenic infarct (Acute) Condition: Stable - Instructions Disposition: TRANSFER ACUTE CARE/OTHER HOSP - Home Medications Comprehensive Discharge Medication List: Ambulatory Orders Levothyroxine [Synthroid -] 75 mcg PO DAILY #0 tablet 08/03/13 Pantoprazole Sodium [Protonix] 40 mg PO DAILY 10/14/14 Diltiazem HCl [Diltiazem 24Hr ER (Cd)] 240 mg PO BID 10/16/14 Ambrisentan [Letairis] 10 mg PO DAILY 04/02/19 Atorvastatin Ca [Lipitor] 40 mg PO DAILY 04/02/19 Disopyramide Phosphate [Norpace] 100 mg PO TID 04/02/19 Methylprednisolone [Medrol -] 6 mg PO DAILY 04/02/19 Torsemide 20 mg PO BID 04/02/19 HYDROmorphone INJECTION [Dilaudid Injection -] 1 mg IVPUSH Q4H PRN #1 mg MDD 6 04/03/19 Heparin - 1,000 unit IVPUSH PRN PRN vial 04/03/19 Heparin - 5,000 unit IVPUSH PRN PRN vial 04/03/19 This patient is new to me today: Yes Date on this admission: 04/03/19 Emergency Visit: Yes ED Registration Date: 04/02/19 Care time: The patient presented to the Emergency Department on the above date and was hospitalized for further evaluation of their emergent condition. Critical Care patient: No - Discharge Referral Referred to [facility] No
[2019-04-03 01:46] LABS: N-TERMINAL BNP 11523.7 pg/ml (5-125)
[2019-04-03 02:30] VITALS: BP 120/50; PULSE 94; TEMP 98.4
[2019-04-03] MEDS ORDERED: TORSEMIDE 20 MG TABLET (FP) PO SCH (06:00)
[2019-04-03] MEDS ORDERED: DISOPYRAMIDE PHOSPHATE 100 MG PO SCH (06:00)
[2019-04-03] MEDS ORDERED: LEVOTHYROXINE NA 75 MCG TABLET (FP) PO SCH (07:00)
[2019-04-03] MEDS ORDERED: methylPREDNISolone 2 MG TABLET PO SCH (10:00)
[2019-04-03] MEDS ORDERED: AMBRISENTAN 10 MG PO SCH (10:00)
[2019-04-03] MEDS ORDERED: PANTOPRAZOLE 40 MG TABLET (FP) PO SCH (10:00)
--- NOTE | 2019-04-03 13:38 | EKG ---
Test Reason : Blood Pressure : / mmHG Vent. Rate : 076 BPM Atrial Rate : 076 BPM P-R Int : 176 ms QRS Dur : 122 ms QT Int : 438 ms P-R-T Axes : 048 -35 057 degrees QTc Int : 492 ms SINUS RHYTHM WITH MARKED SINUS ARRHYTHMIA LEFT AXIS DEVIATION LEFT VENTRICULAR HYPERTROPHY WITH QRS WIDENING CANNOT RULE OUT SEPTAL INFARCT (CITED ON OR BEFORE 17-OCT-2014) ABNORMAL ECG WHEN COMPARED WITH ECG OF 17-OCT-2014 09:45, QUESTIONABLE CHANGE IN QRS DURATION QUESTIONABLE CHANGE IN INITIAL FORCES OF SEPTAL LEADS Confirmed by MD MANUEL, HARRISON ([id number]) on 04/03/2019 1:37:29 PM Referred By: Confirmed By:HARRISON JACKSON MD
[2019-04-03] MEDS ORDERED: ATORVASTATIN CA 40 MG TABLET (FP) PO SCH (22:00)
== END 2019-04-03 02:30 | disposition short-term general hospital (02) | DRG 815 ==
LOC: FER 17:50 → FM/S 21:45
PROVIDERS: ADMIT Internal Medicine; ATTEND Nurse Practitioner Acute Care
DX: D73.5 Infarction of spleen (principal); K55.1 Chronic vascular disorders of intestine; I42.1 Obstructive hypertrophic cardiomyopathy; J84.9 Interstitial pulmonary disease, unspecified; J44.9 Chronic obstructive pulmonary disease, unspecified; M34.9 Systemic sclerosis, unspecified; I27.20 Pulmonary hypertension, unspecified; K21.9 Gastro-esophageal reflux disease without esophagitis; I73.00 Raynaud's syndrome without gangrene; I50.9 Heart failure, unspecified; E03.9 Hypothyroidism, unspecified; G50.0 Trigeminal neuralgia; I10 Essential (primary) hypertension
CPT/HCPCS: 36415; 71045-TC-FY; 74177-TC; 80053; 81003; 81015; 83605; 83690; 83880; 84484; 85025; 85730; 86140; 93005; 99283-25; J1644; J7030